=== PATIENT | female | born 1965 | race Asian ===

== ENCOUNTER → 2020-08-09 | Outpatient (CLI) | payer OTHER ==
--- NOTE | 2020-08-09 11:31 | RAD ---
EXAM: Lumbar spine, 2 views. HISTORY: Pain. COMPARISON: None. FINDINGS: 2 views of the lumbar spine are obtained. There is mild lumbar dextroscoliosis. There is mi ld multilevel endplate remodeling. There is facet arthropathy at the lumbosacral junction. There is n o listhesis. IMPRESSION: Multilevel degenerative change, primarily at the lumbosacral junction. Electronically signed by: Irene Carey MD (08/09/2020 11:29 AM) [id number]
== END ==
LOC: RAD 10:03
PROVIDERS: ATTEND Anesthesiology Pain Medicine
DX: M47.817 Spondylosis without myelopathy or radiculopathy, lumbosacral region (principal); M41.86 Other forms of scoliosis, lumbar region
CPT/HCPCS: 72100